=== PATIENT | female | born 1960 | race Caucasian/White ===

== ENCOUNTER 2018-08-16 07:28 | Day surgery (SDC) | payer MEDICARE, OTHER, MEDICAID ==
[2018-08-16] MEDS ORDERED: CEFAZOLIN 2 GM/50 ML (PMX) 50 ML IVPB (08:00)
[2018-08-16 08:30] LABS: ADD MAN DIFF? NO
[2018-08-16 08:33] LABS: BASOPHILS % 0.9 % (0.0-2.0); EOSINOPHILS # 0.2 10^3/ul (0.0-0.5); EOSINOPHILS % 3.2 % (0.0-7.0); HEMATOCRIT 41.2 % (37.0-47.0); HEMOGLOBIN 13.5 g/dl (12.0-16.0); LYMPHOCYTES # 1.5 10^3/ul (0.8-2.9); LYMPHOCYTES % 32.5 % (15.0-51.0); MEAN CORPUSCULAR HEMOGLOBIN 29.5 pg (29.0-33.0); MEAN CORPUSCULAR HGB CONC 32.8 g/dl (32.0-37.0); MEAN PLATELET VOLUME 9.5 fl (7.4-10.4); MONOCYTE # 0.6 10^3/ul (0.3-0.9); MONOCYTES % 12.1 % (0.0-11.0); NEUTROPHIL # 2.4 10^3/ul (1.6-7.5); NEUTROPHILS % 51.1 % (39.0-77.0); PLATELET COUNT 295 10^3/UL (140-415); RED BLOOD COUNT 4.58 10^6/ul (4.20-5.40)
[2018-08-16 08:33] LABS: WHITE BLOOD COUNT 4.6 10^3/ul (4.8-10.8)
[2018-08-16 08:51] LABS: INR 0.93; PROTIME 12.6 Sec (11.9-14.9)
[2018-08-16 08:52] LABS: PARTIAL THROMBOPLASTIN TIME 30.9 Sec (23.0-35.0)
[2018-08-16 08:54] LABS: ALBUMIN 4.1 g/dl (3.3-4.9); ALBUMIN/GLOBULIN RATIO 1.17; ALKALINE PHOSPHATASE 55 IU/L (42-121); ANION GAP 7 (5-13); ASPARTATE AMINO TRANSFERASE 30 IU/L (15-46); BILIRUBIN,INDIRECT 0.3 mg/dl (0-1.1); BILIRUBIN,TOTAL 0.3 mg/dl (0.2-1.3); BLOOD UREA NITROGEN 14 mg/dl (7-20); CALCIUM 9.5 mg/dl (8.4-10.2); CARBON DIOXIDE 28 mmol/L (21-31); CHLORIDE 109 mmol/L (97-110); CREATININE 0.68 mg/dl (0.44-1.00); Estimated GFR > 60 mL/min (>60); GLUCOSE 115 mg/dl (70-220); POTASSIUM 4.5 mmol/L (3.5-5.1); SODIUM 144 mmol/L (135-144); TOTAL PROTEIN 7.6 g/dl (6.1-8.1)
[2018-08-16] MEDS: SOD CHLORIDE 0.9% 1,000 ML IV (08:54)
[2018-08-16 09:30] LABS: ALANINE AMINOTRANSFERASE 30 IU/L (13-69)
[2018-08-16] MEDS ORDERED: LIDOCAINE 100 MG SYRINGE (09:45)
[2018-08-16] MEDS ORDERED: PROPOFOL 20 ML (09:45)
[2018-08-16] MEDS ORDERED: CEFAZOLIN 1 GM INJ (09:45)
[2018-08-16] MEDS ORDERED: ONDANSETRON 4 MG INJ (09:46)
[2018-08-16] MEDS ORDERED: DEXAMETHASONE 4 MG/ML 5 ML INJ (09:46)
[2018-08-16] MEDS ORDERED: FENTAnyl 50 MCG/ML VIAL (09:46)
[2018-08-16] MEDS ORDERED: MIDAZOLAM 1 MG/ML 2 ML INJ (09:46)
[2018-08-16] MEDS: HEPARIN 1000 UNITS/ML 10 ML INJ ×2 (10:29→11:08)
[2018-08-16] MEDS ORDERED: HYDROmorphONE 1 MG/5 ML IV SYRINGE IV ×2 (10:30)
[2018-08-16] MEDS: LIDOCAINE 1% (MPF) 30 ML INJ (10:32)
[2018-08-16] MEDS: HYDROCODONE/APAP (5/325) TAB PO (13:25)
== END 2018-08-16 13:37 | disposition home or self-care (01) ==
LOC: SDS 07:28
DX: Z45.2 Encounter for adjustment and management of vascular access device (principal); Z85.3 Personal history of malignant neoplasm of breast
CPT/HCPCS: 36590; 71045; 80053; 85025; 85610; 85730; 88300; 93005